=== PATIENT | male | born 1985 | race Caucasian/White ===

== ENCOUNTER 2019-03-21 15:40 | Emergency (ER) | payer OTHER, SELFPAY ==
[2019-03-21 15:58] VITALS: BP 127/85; PULSE 86; RESP 18; TEMP 37.6; O2SAT 99; BMI 36.9
--- NOTE | 2019-03-21 18:49 | ED.EAR ---
HPI - Ear Problem <GISELLE Cruz - Last Filed: 03/21/19 19:48> General Chief complaint: Ear Stated complaint: SINUS INFECTION PRESSURE RIGHT EAR Time Seen by Provider: 03/21/19 18:31 Source: patient Mode of arrival: Ambulatory Limitations: no limitations History of Present Illness HPI Narrative: 33-year-old male presents emergency department complaining of right ear pain over the past 24 hours. He states he has had an upper respiratory tract infection for over week. However, he noticed increasing right ear pressure that became excruciating throughout the day. Patient also reports nasal congestion and dry cough. He denies fevers, chest pain, sore throat, wheezing, abdominal pain, nausea, vomiting, diarrhea, or other concerns. Related Data Home Medications Medication Instructions Recorded Confirmed allopurinol 100 mg PO DAILY 03/21/19 Previous Rx's Medication Instructions Recorded amoxicillin 1,000 mg PO Q8H 5 Days #30 tab 03/21/19 Allergies Allergy/AdvReac Type Severity Reaction Status Date / Time No Known Drug Allergies Allergy Verified 03/21/19 15:58 Review of Systems <GISELLE Cruz - Last Filed: 03/21/19 19:48> Review of Systems Narrative: REVIEW OF SYSTEMS: GENERAL: Denies fevers. HENT: No head trauma or hearing loss. Complains of left ear pain, see HPI. EYES: No loss of vision, double vision, eye pain, irritation or discharge. CARDIOVASCULAR: No chest pain or syncope. RESPIRATORY: No shortness of breath. Complains of cough, see HPI GASTROINTESTINAL: No nausea, vomiting, diarrhea, or constipation. MUSCULOSKELETAL: No weakness or injury. INTEGUMENTARY: No rash, lesions, or pruritus. NEURO: No memory loss, or confusion. Patient History <GISELLE Cruz - Last Filed: 03/21/19 19:48> Medical History No significant family history (Acute) Social History Smoking Status: Never smoker Smoking Status: Never smoker alcohol intake frequency: a few times a week Substance Use Type: does not use Exam <GISELLE Cruz - Last Filed: 03/21/19 19:48> Initial Vital Signs Initial Vital Signs: Vital Signs Temperature 99.6 F 03/21/19 15:58 Pulse Rate 86 03/21/19 15:58 Respiratory Rate 18 03/21/19 15:58 Blood Pressure 127/85 03/21/19 15:58 Pulse Oximetry 99 03/21/19 15:58 PHYSICAL EXAMINATION: GENERAL: Well groomed, alert, and cooperative. Answers questions promptly and appropriately. Vital signs noted. HENT: Normocephalic, atraumatic. Ear canals patent. Right TM with erythema, opacity, and bulging. Left TM intact, otitis effusion noted. Oropharynx with slight erythema, postnasal drip noted. EYES: Conjunctiva pink, sclera white, no periorbital swelling. No discharge. CHEST: Normal to inspection and without deformities. CARDIOVASCULAR: S1 and S2 sounds normal. Regular rate and rhythm, no murmurs, clicks, or bruits. RESPIRATORY: Normal respiratory rate, trachea midline, airway patent. No stridor, nasal flaring or accessory muscle use. Able to speak in full sentences. Lungs are clear in all [place] without wheeze, rhonchi, or crackles. Dry cough heard during examination. MUSCULOSKELETAL: Normal gait and coordination. Equal tone and mass bilaterally. EXTREMITIES: Moves all extremities. SKIN: Warm, dry, soft, appropriate color for ethnicity. No lesions, rashes, or wounds. NEURO: Alert and Oriented X 3. Good coordination. No ataxia or cognitive issues. PSYCH: Appropriate affect and mood. <John Batista DO - Last Filed: 03/22/19 04:21> Initial Vital Signs Initial Vital Signs: Vital Signs Temperature 99.6 F 03/21/19 15:58 Pulse Rate 86 03/21/19 15:58 Respiratory Rate 18 03/21/19 15:58 Blood Pressure 127/85 03/21/19 15:58 Pulse Oximetry 99 03/21/19 15:58 Course <GISELLE Cruz - Last Filed: 03/21/19 19:48> Vital Signs Vital signs: Vital Signs - 8 hr 03/21/19 15:58 03/21/19 19:01 Temperature 99.6 F 99.0 F Pulse Rate 86 74 Respiratory Rate 18 16 Blood Pressure 127/85 129/78 Pulse Oximetry 99 98 <John Batista DO - Last Filed: 03/22/19 04:21> Vital Signs Vital signs: Vital Signs - 8 hr 03/21/19 15:58 03/21/19 19:01 Temperature 99.6 F 99.0 F Pulse Rate 86 74 Respiratory Rate 18 16 Blood Pressure 127/85 129/78 Pulse Oximetry 99 98 Medical Decision Making <GISELLE Cruz - Last Filed: 03/21/19 19:48> Medical Records Medical records reviewed: Yes I reviewed the patient's medical records. Lab Data Lab results reviewed: Yes I reviewed the patient's lab results. MDM Narrative Medical decision making narrative: 33-year-old male presents with right-sided ear pain. History and examination most consistent with otitis media. Patient was prescribed amoxicillin. I suspect his otitis media was caused by viral sinusitis and eustachian tube dysfunction. He was encouraged to use Flonase to help relieve the symptoms. Patient was encouraged to follow up with his primary care provider in 1-2 weeks for re-evaluation of symptoms continue. ED return precautions given. Discharge Plan Departure Patient Disposition: Home Clinical Impression: Otitis media Qualifiers: Otitis media type: mucoid Chronicity: acute Laterality: right Qualified Code(s): H65.111 - Acute and subacute allergic otitis media (mucoid) (sanguinous) (serous), right ear Discharge Date/Time: 03/21/19 19:01 Instructions: Middle Ear Infection Activity Restrictions/Additional Instructions: Thank you for entrusting me with your care today. As discussed, it appears your right ear is infected. I prescribed you antibiotics, please take these as directed. Additionally, I recommend you use [id number] Flonase for the next 2 weeks, use 1 spray in each nostril morning and night. You may use your Neti pot but be sure they use clean sterilized water. Follow up with your primary care provider in 1-2 weeks for re-evaluation if symptoms continue. Return to the emergency department if you develop worsening symptoms such as chest pain, shortness of breath, abdominal pain, or other concerns. Prescriptions: New amoxicillin 500 mg tablet 1,000 mg PO Q8H 5 Days Qty: 30 RF: 0 No Action allopurinol 100 mg tablet 100 mg PO DAILY RF: 0
[2019-03-21 19:01] VITALS: BP 129/78; PULSE 74; RESP 16; TEMP 37.2; O2SAT 98
== END 2019-03-21 19:01 | disposition home or self-care (01) ==
PROVIDERS: Emergency Provider Nurse Practitioner
DX: H65.111 Acute and subacute allergic otitis media (mucoid) (sanguinous) (serous), right ear (principal)
CPT/HCPCS: 99281; 99282